=== PATIENT | male | born 1970 | race Caucasian/White ===

== ENCOUNTER 2022-06-19 13:22 | Emergency (ER) | payer OTHER ==
[~2022-06-19] VITALS: Ht 177.8 cm; Wt 131.5 kg
[2022-06-19 13:22] VITALS: BP_SYST 142
--- NOTE | 2022-06-19 13:22 | NUR ---
BROUGHT BACK TO BED #5 AND TRIAGED, REPORT GIVEN TO TANO
--- NOTE | 2022-06-19 13:39 | NUR ---
ER at bedside examining patient.
--- NOTE | 2022-06-19 13:40 | NUR ---
52YO M C/O RIGHT SHOULDER PAIN X FEW MINS. PT STATES HE HEARD A POPPING SOUND WHILE LIFTING OBJECT FROM CAR. PAIN 10/. DENIES NUMBNESS/TINGLING. IN ER, VSS. PT NOT IN DISTRESS. LIMITED ROM OF RIGHT SHOULDER. ERMD MADE AWARE OF PT STATUS.
[2022-06-19 13:43] VITALS: BP_SYST 142
[2022-06-19] MEDS ORDERED: KETOROLAC TROMETHAMINE 60 MG/2 ML VIAL IM ONE (14:00)
--- NOTE | 2022-06-19 14:04 | NUR ---
A/OX4 VSS VERBALIZED UNDERSTANDING OF DC INSTRUCTIONS, ALL QUESTIONS ANSWERED
== END 2022-06-19 14:04 | disposition home or self-care (01) ==
LOC: SED 13:22
DX: M75.21 Bicipital tendinitis, right shoulder (principal); M25.511 Pain in right shoulder; Z79.899 Other long term (current) drug therapy
CPT/HCPCS: 99283; 73030; 96372; J1885